=== PATIENT | female | born 1990 | race American Indian/Alaskan Native ===

== ENCOUNTER 2017-06-09 01:13 | Emergency (ER) | payer SELFPAY ==
[2017-06-09 02:51] LABS: Bilirubin,Urine NEG (Negative); Blood,Urine NEG (Negative); Ketones,Urine NEG (Negative); Leukocyte Esterase,Urine TR (Negative); Mucus,Urine FEW /HPF; Nitrite,Urine NEG (Negative); Protein,Urine <15 mg/dL mg/dL (Negative); Urobilinogen,Urine < 2.0 mg/dL (<2.0); WBC,Urine < 1.0 /HPF (0.0-6.0)
[2017-06-09 04:52] VITALS: BP 132/83
--- NOTE | 2017-06-09 05:52 | Emergency Department Report ---
ED Female HPI - General Chief complaint: Urogenital-Female Stated complaint: VAGINAL IRRATION Time Seen by Provider: 06/09/17 05:52 Source: patient Mode of arrival: Ambulatory Limitations: No Limitations - History of Present Illness Initial comments: Patient here reports that she was treated for bacterial vaginosis with Flagyl which she finished yesterday she says she started having external vaginal irritation with very dry skin. She said she does not have any vaginal burning or discharge. Denies any vaginal bleeding. Denies any urinary frequency urgency or burning. Pain is 0-10. Last menstrual period was 05/06/2017. Patient says she shaves but it's not from shaving. She said the outside of her vagina is dried and cracked. She said it feels irritated but not painful. MD Complaint: other (external vaginal dryness and cracking with irritation) Onset/Timin -: days(s) Location: labia Radiation: non-radiating Severity scale (0 -10): 0 Are you Now?: No Last Menstrual Period: 05/06/17 EDC: 02/10/18 Associated Symptoms: rash, other (vaginal irritation). denies: vaginal discharge, vaginal bleeding, headaches, loss of appetite, dysuria, hematuria, seizure, shortness of breath, syncope, weakness - Related Data Sexually active: Yes (not concerned for STDs. Patient reports she recently got checked for STDs) Previous Rx's Medication Instructions Recorded Last Taken Type Fluconazole [Diflucan TAB] 100 mg PO QDAY #2 tablet 06/09/17 Unknown Rx Nystatin Oint [Mycostatin Oint] 1 applicatio TP BID #1 tube 06/09/17 Unknown Rx Allergies Allergy/AdvReac Type Severity Reaction Status Date / Time No Known Allergies Allergy Verified 06/09/17 01:20 ED Review of Systems ROS: Stated complaint: VAGINAL IRRATION Other details as noted in HPI Comment: All other systems reviewed and negative Constitutional: denies: chills, fever ENT: denies: throat pain Respiratory: no symptoms reported Cardiovascular: denies: chest pain, palpitations, edema, syncope Gastrointestinal: denies: abdominal pain, nausea, vomiting Genitourinary: other (vaginal irritation). denies: urgency, dysuria, frequency , hematuria, discharge, dyspareunia Skin: pruritus. denies: rash, lesions Neurological: denies: headache ED Past Medical Hx - Past Medical History Previous Medical History?: Yes Additional medical history: BACTERIAL VAGINOSIS - Surgical History Past Surgical History?: No - Family History Family history: hypertension - Social History Smoking Status: Current Some Day Smoker Substance Use Type: Alcohol - Medications Home Medications: Home Medications Medication Instructions Recorded Confirmed Last Taken Type Fluconazole [Diflucan TAB] 100 mg PO QDAY #2 tablet 06/09/17 Unknown Rx Nystatin Oint [Mycostatin Oint] 1 applicatio TP BID #1 tube 06/09/17 Unknown Rx ED Physical Exam - General Limitations: No Limitations General appearance: alert, in no apparent distress - Head Head exam: Present: atraumatic, normocephalic, normal inspection - Eye Eye exam: Present: normal appearance, PERRL Pupils: Present: normal accommodation - ENT ENT exam: Present: normal exam, normal orophraynx, mucous membranes moist - Neck Neck exam: Present: normal inspection, full ROM. Absent: tenderness, meningismus, lymphadenopathy - Respiratory Respiratory exam: Present: normal lung sounds bilaterally. Absent: respiratory distress, chest wall tenderness - Cardiovascular Cardiovascular Exam: Present: regular rate, normal rhythm, normal heart sounds - GI/Abdominal GI/Abdominal exam: Present: soft, normal bowel sounds, mass, bruit, pulsatile mass. Absent: distended, tenderness, guarding, rebound, rigid - External exam: Present: erythema, other (of erythema to the external labia area without any lesion. Noted dry cracked skin to labia area and both side.). Absent: swelling, lesions, lacerations, ecchymosis, bleeding - Extremities Exam Extremities exam: Present: normal inspection, full ROM, normal capillary refill. Absent: tenderness, pedal edema, joint swelling, calf tenderness - Back Exam Back exam: Present: normal inspection, full ROM. Absent: tenderness, CVA tenderness (R), CVA tenderness (L), muscle spasm, paraspinal tenderness, vertebral tenderness, rash noted - Neurological Exam Neurological exam: Present: alert, oriented X3, normal gait, reflexes normal. Absent: motor sensory deficit - Psychiatric Psychiatric exam: Present: normal affect, normal mood - Skin Skin exam: Present: warm, dry - Expanded Skin Exam Expanded Type of lesion: Present: rash Distribution of rash: genitals ( cracked skin with mild erythema to labia majora without any lesions or vesicles.) Description of rash: Present: erythematous. Absent: tenderness, crusting, discharge, fluctuant, indurated ED Course Vital Signs 06/09/17 06/09/17 01:20 04:48 Temperature 98.9 F 98.4 F Pulse Rate 88 74 Respiratory 20 18 Rate Blood Pressure 116/69 132/83 O2 Sat by Pulse 100 100 Oximetry - Reevaluation(s) Reevaluation #1: 06/09/17 06:20 stable throughout ED stay. She finished her last dose of Flagyl yesterday. Pt also said she had pelvic exam with STD test and an and was found to have bacterial vaginosis. Urine with trace leukocyte Estrace, negative . Urine culture sent ED Medical Decision Making - Lab Data Lab Results 06/09/17 Range/Units 01:44 Urine Color Yellow (Yellow) Urine Turbidity Clear (Clear) Urine pH 6.0 (5.0-7.0) Ur Specific [place] 1.025 (1.003-1.030) Urine Protein <15 mg/dl (Negative) mg/dL Urine Glucose (UA) Neg (Negative) mg/dL Urine Ketones Neg (Negative) mg/dL Urine Blood Neg (Negative) Urine Nitrite Neg (Negative) Urine Bilirubin Neg (Negative) Urine Urobilinogen < 2.0 (<2.0) mg/dL Ur Leukocyte Esterase Tr (Negative) Urine WBC (Auto) < 1.0 (0.0-6.0) /HPF Urine RBC (Auto) 1.0 (0.0-6.0) /HPF U Epithel Cells (Auto) 1.0 (0-13.0) /HPF Urine Mucus Few /HPF Urine HCG, Qual Negative (Negative) Urine culture pending - Medical Decision Making ED course: Discussed the patient with symmetrical findings that she has vulvovaginitis which is a yeast infection that she can develop from taking an antibiotic and since she just completed a Flagyl and problems started after taking Flagyl will put her on antifungal cream and medication. There is no need for any bimanual or pelvic exam as patient had recent pelvic exam with diagnosis of BV and negative findings for STDs per patient. Patient was also here to get a test because she is late on her. She last menstrual cycle was 05/06/2017. I discussed with her that her urine was negative for and urine culture is pending and will be called she has a urinary tract infection. She was understanding the discharge instruction follow up plans. Discharge home with prescription for nystatin cream and Diflucan 2 days Critical care attestation.: If time is entered above; I have spent that time in minutes in the direct care of this critically ill patient, excluding procedure time. ED Disposition Clinical Impression: Vulvovaginitis due to yeast Disposition: DC- TO HOME OR SELFCARE Is pt being admited?: No Does the pt Need Aspirin: No Condition: Stable Instructions: Vulvovaginal Candidiasis (ED) Additional Instructions: Please keep vaginal area clean and dry. A Diflucan as prescribed and applying nystatin cream as instructed Please practice safe sex. test is negative Prescriptions: Fluconazole [Diflucan TAB] 100 mg PO QDAY #2 tablet Nystatin Oint [Mycostatin Oint] 1 applicatio TP BID #1 tube Referrals: Your, OBGYN [Other] - 3-5 Days [facility] [Outside] - 3-5 Days [facility] [Provider Group] - 3-5 Days Forms: Work/School Release Form(ED)
== END 2017-06-09 06:41 | disposition home or self-care (01) ==
LOC: ED 01:13
DX: N76.0 Acute vaginitis (principal); F17.200 Nicotine dependence, unspecified, uncomplicated
CPT/HCPCS: 81001; 81025; 87086; 99283

== ENCOUNTER 2017-06-15 22:10 | Emergency (ER) | payer SELFPAY ==
[2017-06-16] MEDS ORDERED: DECADRON IM ONE (04:33)
--- NOTE | 2017-06-16 04:33 | Emergency Department Report ---
ED Allergic Reaction HPI - General Chief complaint: Allergic Reaction Stated complaint: PRIVATE AREA SWELLING Time Seen by Provider: 06/16/17 04:14 Source: patient Mode of arrival: Ambulatory Limitations: No Limitations - History of Present Illness Initial Comments: Patient here reports that she has allergic reaction from nystatin ointment that was ordered for yeast infection. She says she was seen here on 06/09/2017 with his private nystatin cream and oral Diflucan. She said she put the cream on and she's been having vaginal swelling 1 week with itching. She is on her menses at present. Patient says she has complete STD test 2 weeks ago and everything was normal. Denies any urinary burning but reports that she saw her on external vaginal area. She says she stopped using the cream and it got better but then she put Shelton on the area and it got more irritated. Pain to external vaginal area is 8 out of 10 and burning. Denies any abdominal pain or back pain. Denies any urinary frequency urgency or burning. Denies any nausea or vomiting. Last menstrual period was 06/12 2017 and she still on her menses. She has a history of bacterial vaginosis versus treated when she had her STD check and Brittney 2 weeks ago. She says she is not currently having sex at present. MD Complaint: allergic reaction, other (allergic reaction to external vaginal area) Onset/Timin -: week(s) Exposure: medication Symptoms: rash, itching, other (swelling of external vaginal area). denies: facial swelling, lip swelling, difficulty swallowing, difficulty breathing, orolingual swelling, hoarseness, syncopy, dizziness, nausea, vomiting, abdominal pain Severity: severe Treatment Prior to Arrival: other (shelton cream) Previous Allergy History: none - Related Data Previous Rx's Medication Instructions Recorded Last Taken Type Nystatin Oint [Mycostatin Oint] 1 applicatio TP BID #1 tube 06/09/17 Unknown Rx Cephalexin [Keflex] 500 mg PO Q8HR #30 cap 06/16/17 Unknown Rx Fluconazole [Diflucan TAB] 100 mg PO QDAY #3 tablet 06/16/17 Unknown Rx diphenhydrAMINE [Benadryl CAP] 50 mg PO Q8HR PRN #12 capsule 06/16/17 Unknown Rx predniSONE [Deltasone] 50 mg PO QDAY #5 tab 06/16/17 Unknown Rx Allergies Allergy/AdvReac Type Severity Reaction Status Date / Time No Known Allergies Allergy Verified 06/09/17 01:20 ED Review of Systems ROS: Stated complaint: PRIVATE AREA SWELLING Other details as noted in HPI Comment: Unobtainable due to pts medical conditions Constitutional: denies: chills, fever ENT: denies: throat pain, congestion Respiratory: no symptoms reported Cardiovascular: denies: chest pain, palpitations, dyspnea on exertion, orthopnea , edema, syncope Gastrointestinal: denies: abdominal pain, nausea, vomiting Genitourinary: other (external vaginal swelling with irritation). denies: urgency, dysuria, frequency, hematuria, discharge Musculoskeletal: denies: back pain, arthralgia Skin: rash, pruritus Neurological: denies: headache, weakness ED Past Medical Hx - Past Medical History Previous Medical History?: Yes Additional medical history: BACTERIAL VAGINOSIS - Surgical History Past Surgical History?: No - Family History Family history: no significant - Social History Smoking Status: Current Every Day Smoker Substance Use Type: Alcohol Other Social History: Single female - Medications Home Medications: Home Medications Medication Instructions Recorded Confirmed Last Taken Type Nystatin Oint [Mycostatin Oint] 1 applicatio TP BID #1 tube 06/09/17 Unknown Rx Cephalexin [Keflex] 500 mg PO Q8HR #30 cap 06/16/17 Unknown Rx Fluconazole [Diflucan TAB] 100 mg PO QDAY #3 tablet 06/16/17 Unknown Rx diphenhydrAMINE [Benadryl CAP] 50 mg PO Q8HR PRN #12 capsule 06/16/17 Unknown Rx predniSONE [Deltasone] 50 mg PO QDAY #5 tab 06/16/17 Unknown Rx ED Physical Exam - General Limitations: No Limitations General appearance: alert, in no apparent distress - Head Head exam: Present: atraumatic, normocephalic, normal inspection - Eye Eye exam: Present: normal appearance, PERRL, EOMI. Absent: periorbital swelling , periorbital tenderness Pupils: Present: normal accommodation - ENT ENT exam: Present: normal exam, normal orophraynx, mucous membranes moist, TM's normal bilaterally, normal external ear exam - Expanded ENT Exam Expanded Ear exam: Present: normal external inspection Mouth exam: Present: normal external inspection, tongue normal. Absent: drooling, trismus, muffled voice Throat exam: Positive: normal inspection. Negative: tonsillar erythema, tonsillomegaly, tonsillar exudate, R peritonsillar mass, L peritonsillar mass - Neck Neck exam: Present: normal inspection, full ROM. Absent: tenderness, meningismus, lymphadenopathy - Respiratory Respiratory exam: Present: normal lung sounds bilaterally. Absent: respiratory distress, wheezes, rales, rhonchi, stridor, chest wall tenderness - Cardiovascular Cardiovascular Exam: Present: normal rhythm, tachycardia, normal heart sounds - GI/Abdominal GI/Abdominal exam: Present: soft, normal bowel sounds. Absent: distended, tenderness, guarding, rebound, rigid - External exam: Present: erythema, swelling. Absent: lesions, lacerations, ecchymosis, bleeding - Expanded Exam Expanded Female exam: Present: vulvar erythema, vulvar tenderness. Absent: vaginal laceration, herpetic lesions - Extremities Exam Extremities exam: Present: normal inspection, full ROM, normal capillary refill. Absent: tenderness, pedal edema, joint swelling, calf tenderness - Back Exam Back exam: Present: normal inspection, full ROM. Absent: tenderness, CVA tenderness (R), CVA tenderness (L), muscle spasm, paraspinal tenderness, vertebral tenderness, rash noted - Neurological Exam Neurological exam: Present: alert, oriented X3, normal gait, reflexes normal. Absent: motor sensory deficit - Psychiatric Psychiatric exam: Present: normal affect, normal mood - Skin Skin exam: Present: warm, dry, normal color, rash (labia majora bilaterally), erythema - Expanded Skin Exam Expanded Type of lesion: Present: rash Distribution of rash: genitals Description of rash: Present: tenderness, erythematous, swelling. Absent: vesicular, blisters, crusting, discharge, fluctuant, indurated ED Course Vital Signs 06/15/17 06/16/17 22:44 04:32 Temperature 98.2 F Pulse Rate 106 H 72 Respiratory 16 Rate Blood Pressure 129/81 O2 Sat by Pulse 99 Oximetry - Reevaluation(s) Reevaluation #1: 06/16/17 06:06 Patient given Decadron 10 mg IM in emergency room for allergic reaction to vaginal area from use in nystatin cream. ED Medical Decision Making - Medical Decision Making MDM: Assessment/plan ED course: Constipation that it seems that she has a allergic reaction is her labia majora is red erythema and swollen. He was treated for vulvovaginitis and given prescription for nystatin topical which she said when she started using her vaginal area became more red and swollen and painful. He has no lesions and she had STD tests within 2 weeks ago which she said was only positive for bacterial vaginosis which she got treated for. Diflucan on 2 days before she started the nystatin and she states it was getting better with the Diflucan on but when she started the nystatin she developed an allergic reaction. She says she uses that for 1 week and then she stopped and put near on the area. I encouraged patient to stop within the hair on her vaginal area as this is caustic to her skin and stop using nystatin topical. I instructed patient that I will treat her for allergic reaction along with cellulitis which is a minor infection of her external vaginal area. Patient was given Decadron 10 mg IM and emergency room and will be discharged home with prescription for Keflex, Benadryl and prednisone. Instructed her to follow up with her [facility] which she does have in 4-5 days. Diagnostic/lab: No Need for diagnostic lab tests. Diagnosis: Allergic rash to her external genitalia, vulvovaginitis, cellulitis, minor Meds: Drawn 10 mg IM given in emergency room. Patient discharged home with prescription for prednisone, Diflucan, Keflex and Benadryl follow-up with her [facility] in 4-5 days Critical care attestation.: If time is entered above; I have spent that time in minutes in the direct care of this critically ill patient, excluding procedure time. ED Disposition Clinical Impression: Vulvovaginal infection, Cellulitis of labia majora Allergic reaction caused by a drug Qualifiers: Encounter type: initial encounter Qualified Code(s): T78.40XA - Allergy, unspecified, initial encounter Disposition: TO HOME OR SELFCARE Is pt being admited?: No Does the pt Need Aspirin: No Condition: Stable Instructions: Cellulitis (ED), Vulvovaginal Candidiasis (ED), Urticaria (ED) Additional Instructions: Stop using shelton on vaginal area stop using nystatin topical take meds as prescribed follow up with OBgyn in 4-5 days Prescriptions: Cephalexin [Keflex] 500 mg PO Q8HR #30 cap diphenhydrAMINE [Benadryl CAP] 50 mg PO Q8HR PRN #12 capsule PRN Reason: Allergy Symptoms Fluconazole [Diflucan TAB] 100 mg PO QDAY #3 tablet predniSONE [Deltasone] 50 mg PO QDAY #5 tab Referrals: Your, [place] [Other] - 06/20/17 PRIMARY CARE, [Primary Care Provider] - 06/20/17 Forms: Work/School Release Form(ED)
[2017-06-16 06:35] VITALS: BP 125/80
== END 2017-06-16 06:34 | disposition home or self-care (01) ==
LOC: ED 22:10
DX: N76.4 Abscess of vulva (principal); T78.49XA Other allergy, initial encounter; N76.2 Acute vulvitis; F17.200 Nicotine dependence, unspecified, uncomplicated
CPT/HCPCS: 96372; 99282; J1100